=== PATIENT | male | born 1955 | race Caucasian/White ===

== ENCOUNTER 2019-07-23 00:07 | Inpatient (IN) ==
[2019-07-23 00:33] LABS: Hematocrit 45.1 % (37.5-50.1); Hemoglobin 15.7 g/dL (12.9-16.9); Mean Corpuscular HGB Conc 34.8 g/dL (31.6-35.5); Mean Corpuscular Hemoglobin 30.8 pg (28.0-33.3); Mean Corpuscular Volume 88.6 fL (83.0-100.0); Platelet Count 176 K/mcL (140-400); Red Blood Count 5.09 M/mcL (4.19-5.50); Red Cell Distribution Width 13.2 % (11.5-14.5)
[2019-07-23 00:41] LABS: Prothrombin Time 11.1 Seconds (9.4-12.1)
[2019-07-23 00:44] LABS: Activated Partial Thrombo Time 32.4 Seconds (26.0-36.0)
[2019-07-23 00:53] LABS: Troponin I < 0.03 ng/mL (< 0.04)
[2019-07-23] MEDS ORDERED: Isovue-370 500 ML BOTTLE IVP ONE (01:00)
[2019-07-23 01:01] LABS: BUN/Creatinine Ratio 21 (6-26); Blood Urea Nitrogen 27 mg/dL (8-23); Calcium 9.3 mg/dL (8.6-10.3); Carbon Dioxide 23 mEq/L (23-29); Chloride 102 mEq/L (98-107); Glucose 362 mg/dL (70-105); Osmolality,Calculated 302 (280-300); Potassium 4.5 mEq/L (3.5-5.1); Sodium 136 mEq/L (136-145); eGFR For African Americans > 60 (> 60); eGFR For Non-African Americans 57 (> 60)
[2019-07-23] MEDS ORDERED: Insulin Regular, Human 100 UNIT/ML SQ ONE (02:27)
[2019-07-23 06:21] LABS: Hematocrit 45.6 % (37.5-50.1); Hemoglobin 15.4 g/dL (12.9-16.9); Mean Corpuscular HGB Conc 33.8 g/dL (31.6-35.5); Mean Corpuscular Hemoglobin 30.9 pg (28.0-33.3); Mean Corpuscular Volume 91.6 fL (83.0-100.0); Mean Platelet Volume 10.2 fL (9.4-12.4); Platelet Count 171 K/mcL (140-400); Red Blood Count 4.98 M/mcL (4.19-5.50); Red Cell Distribution Width 13.4 % (11.5-14.5); White Blood Count 7.1 K/mcL (4.3-11.1)
[2019-07-23 06:46] LABS: Alanine Aminotransferase 39 Units/L (7-52); Albumin/Globulin Ratio 1.5 (1.1-2.2); Alkaline Phosphatase 67 Units/L (34-104); Aspartate Amino Transferase 30 Units/L (13-39); BUN/Creatinine Ratio 22 (6-26); Bilirubin,Total 0.9 mg/dL (0.3-1.0); Blood Urea Nitrogen 26 mg/dL (8-23); Calcium 9.7 mg/dL (8.6-10.3); Carbon Dioxide 24 mEq/L (23-29); Chloride 100 mEq/L (98-107); Chol/HDL Ratio 6.7 (0-4.9); Cholesterol 200 mg/dL (< 200); Globulin 2.7 g/dL (2.4-3.5); Glucose 244 mg/dL (70-105); HDL Cholesterol 30 mg/dL (40-59); LDL Cholesterol,Calculated 121 mg/dL (0-99); Osmolality,Calculated 295 (280-300); Potassium 4.5 mEq/L (3.5-5.1); Sodium 136 mEq/L (136-145); Total Protein 6.7 g/dL (6.4-8.9); Triglycerides 244 mg/dL (< 150); eGFR For African Americans > 60 (> 60); eGFR For Non-African Americans > 60 (> 60)
[2019-07-23 09:20] LABS: Estimated Average Glucose 289 mg/dl
[2019-07-23] MEDS: Aspirin Enteric Coated 81 MG Tablet PO SCH (10:33)
[2019-07-23] MEDS ORDERED: D5% in Water 1,000 ML IVC PRN (12:24)
[2019-07-23] MEDS ORDERED: Dextrose Gel 15 GM/37.5 ML TUBE PO PRN ×2 (12:24)
[2019-07-23] MEDS ORDERED: *HR* Dextrose 50 % in Water (Syg) 50 ML SYRINGE IVP PRN (12:24)
[2019-07-23] MEDS ORDERED: Perflutren Lipid Microsphere 1.3 ML in 0.9 % Sodium Chloride 8.7 ML IVP ONE (15:19)
[2019-07-23] MEDS: Insulin LISPRO 300 UNITS/3 ML VIAL SQ SCH ×2 (16:54→22:32)
[2019-07-24 05:06] LABS: INR 1.1; Prothrombin Time 12.7 Seconds (9.4-12.1)
[2019-07-24 05:09] LABS: Basophils % 0.1 %; Eosinophils % 0.6 %; Hematocrit 48.3 % (37.5-50.1); Hemoglobin 16.5 g/dL (12.9-16.9); Immature Granulocytes % 0.4 % (0-4); Lymphocytes # 1.2 K/mcL (0.6-4.6); Mean Corpuscular HGB Conc 34.2 g/dL (31.6-35.5); Mean Corpuscular Hemoglobin 30.3 pg (28.0-33.3); Mean Corpuscular Volume 88.8 fL (83.0-100.0); Monocytes # 0.8 K/mcL (0.0-1.3); Monocytes % 11.2 %; Neutrophils # 4.8 K/mcL (1.6-8.9); Platelet Count 171 K/mcL (140-400); Red Blood Count 5.44 M/mcL (4.19-5.50); Red Cell Distribution Width 13.3 % (11.5-14.5); Segmented Neutrophils % 69.7 %; White Blood Count 6.9 K/mcL (4.3-11.1)
[2019-07-24 05:21] LABS: BUN/Creatinine Ratio 19 (6-26); Blood Urea Nitrogen 22 mg/dL (8-23); Calcium 9.7 mg/dL (8.6-10.3); Carbon Dioxide 25 mEq/L (23-29); Chloride 101 mEq/L (98-107); Glucose 259 mg/dL (70-105); Osmolality,Calculated 286 (280-300); Potassium 4.4 mEq/L (3.5-5.1); Sodium 132 mEq/L (136-145); eGFR For African Americans > 60 (> 60); eGFR For Non-African Americans > 60 (> 60)
[2019-07-24] MEDS: Aspirin Enteric Coated 81 MG Tablet PO SCH (08:48)
[2019-07-24] MEDS: Insulin LISPRO 300 UNITS/3 ML VIAL SQ SCH ×4 (08:49→20:12)
[2019-07-24] MEDS ORDERED: Isovue-370 500 ML BOTTLE IVP ONE (09:14)
[2019-07-24] MEDS ORDERED: Saline Nasal Spray 44 ML BOTTLE NS PRN (09:14)
[2019-07-24] MEDS ORDERED: Ibuprofen 400 MG TABLET PO PRN (16:06)
[2019-07-24] MEDS ORDERED: Insulin LISPRO 300 UNITS/3 ML VIAL SQ SCH (17:00)
[2019-07-24] MEDS ORDERED: Insulin DETEMIR 100 UNIT/ML X5UNITS SQ SCH (21:00)
[2019-07-25] MEDS ORDERED: Apixaban 5 MG TABLET PO SCH (09:00)
[2019-07-25] MEDS: Aspirin Enteric Coated 81 MG Tablet PO SCH (09:01)
[2019-07-25] MEDS: Insulin LISPRO 300 UNITS/3 ML VIAL SQ SCH ×4 (09:07→12:44)
[2019-07-25 11:39] VITALS: BP 125/93
[2019-07-25] MEDS ORDERED: Insulin DETEMIR 100 UNIT/ML X5UNITS SQ SCH (21:00)
== END 2019-07-25 16:29 | disposition home or self-care (01) | DRG 65 ==
LOC: 2NENU 00:07 → EMEROOARM 00:07 → SUATTDRO 04:49 → 2NENU 05:34
PROVIDERS: ADMIT Internal Medicine; ATTEND Internal Medicine